=== PATIENT | female | born 1960 | race Caucasian/White ===

== ENCOUNTER → 2018-09-26 | Outpatient (CLI) | payer MEDICARE ==
[2018-09-26 15:37] LABS: ABG BASE EXCESS 0.7 MMOL/L (-2.5-2.5); ABG OXYGEN SATURATION 95 % (94-100); ABG PCO2 37 MMHG (35-45); ABG PH 7.44 (7.37-7.43); ABG PO2 62 MMHG (79-93); ABG TCO2 25.8 MMOL/L (21.0-31.0)
[2018-09-26 15:51] LABS: ALLENS TEST YES-POS; INSPIRED O2 RA; PATIENT TEMP 96.8; VENTILATOR NO
== END ==
LOC: RT 15:05
PROVIDERS: ATTEND Nurse Practitioner Family
DX: J44.9 Chronic obstructive pulmonary disease, unspecified (principal); R06.02 Shortness of breath; G47.10 Hypersomnia, unspecified; R09.02 Hypoxemia; I63.9 Cerebral infarction, unspecified; Z87.09 Personal history of other diseases of the respiratory system
CPT/HCPCS: 36600; 82805; 94761

== ENCOUNTER → 2018-10-05 | Outpatient (CLI) | payer MEDICARE ==
[~2018-10-05] MED LIST: RT-ALBUTEROL SULF 2.5 MG/3 ML PRE-MIX VIAL INH ONE; RT-ALBUTEROL SULF 2.5 MG/3 ML PRE-MIX VIAL ONE
--- NOTE | 2018-10-05 15:33 | Diagnostic Imaging Report ---
PROCEDURE: CT chest without contrast. TECHNIQUE: Multiple contiguous axial images were obtained through the chest without the use of intravenous contrast. INDICATION: COPD and shortness of breath. COMPARISON: No prior studies are available for comparison. FINDINGS: No axillary lymphadenopathy is seen. Hilar and mediastinal evaluation is limited without intravenous contrast. No pericardial or pleural fluid is identified. The central airways are patent. There are emphysematous changes in both lungs. There appears to be a suture line from prior surgery in the right upper lobe. No discrete mass is seen. Bony structures are unremarkable. Upper abdomen is unremarkable. IMPRESSION: Significant emphysematous changes in both lungs with postsurgical changes in the right upper lobe. No parenchymal mass or infiltrate is identified. Dictated by: Dictated on workstation # [id number]
== END ==
LOC: RAD 14:38
PROVIDERS: ATTEND Nurse Practitioner Family
DX: J43.9 Emphysema, unspecified (principal); G47.10 Hypersomnia, unspecified; I63.9 Cerebral infarction, unspecified; G47.34 Idiopathic sleep related nonobstructive alveolar hypoventilation; Z98.890 Other specified postprocedural states; Z87.09 Personal history of other diseases of the respiratory system
CPT/HCPCS: 71250

== ENCOUNTER 2018-10-21 19:12 | Outpatient (CLI) | payer MEDICARE | END 2018-10-22 06:35 | disposition home or self-care (01) | LOC: SLEEP 19:12 | PROVIDERS: ATTEND Nurse Practitioner Family | DX: R09.02 Hypoxemia (principal); R06.83 Snoring; G47.10 Hypersomnia, unspecified | CPT/HCPCS: 95810 ==

== ENCOUNTER → 2020-11-18 | Outpatient (CLI) | payer MEDICARE ==
[~2020-11-18] MED LIST changes: +CATHETER FLUSH 10 ML SYR IV PRN; +HOLD METFORMIN - RECEIVED CONTRAST 20 ML VIAL IV SCH; +IOHEXOL 350 MG/ML 100 ML (OMNIPAQUE 350) VIAL IV ONE; +NS 100 ML (IVPB) BAG IV ONE; -RT-ALBUTEROL SULF 2.5 MG/3 ML PRE-MIX VIAL INH ONE; -RT-ALBUTEROL SULF 2.5 MG/3 ML PRE-MIX VIAL ONE
[2020-11-18 09:54] LABS: BUN/CREATININE RATIO 12; GFR ESTIMATED > 60
--- NOTE | 2020-11-18 11:16 | Diagnostic Imaging Report ---
EXAMINATION: CT Chest with intravenous contrast. TECHNIQUE: Multiple contiguous axial images were obtained through the chest after the uneventful administration of intravenous contrast. All CT scans use one or more of the following dose optimizing techniques: automated exposure control, MA and/or KvP adjustment based on a patient size and exam type, or iterative reconstruction. HISTORY: COPD COMPARISON: 10/10/2019 FINDINGS: There is no edema or pneumonia. No pleural effusion. No pneumothorax. No suspicious nodules. Lungs are severely emphysematous. There is a suture line in the right upper lobe. There is a small fissural lymph node along the major fissure on the right. There is no axillary or supraclavicular lymphadenopathy. There is no mediastinal lymphadenopathy. Heart size is normal. There are no coronary artery calcifications. No pericardial effusion. Aorta is normal in caliber. Limited views of the upper abdomen are unremarkable. There are no suspicious osseus lesions. IMPRESSION: 1. Severe emphysema, unchanged. No acute abnormality. Dictated by: Dictated on workstation # [id number]
== END ==
LOC: RAD FS 09:10
PROVIDERS: ATTEND Nurse Practitioner Family
DX: J43.9 Emphysema, unspecified (principal)
CPT/HCPCS: 36415; 71260; 82565; 84520